=== PATIENT | male | born 1985 | race Caucasian/White ===

== ENCOUNTER 2016-07-24 05:09 | Emergency (ER) | payer SELFPAY ==
[~2016-07-24] VITALS: Ht 175.3 cm; Wt 63.5 kg
[2016-07-24 05:59] LABS: BASO % 0 % (0-3); EOS % 1 % (0-3); HEMATOCRIT 46.9 % (39.0-53.0); LYMPH # 1.7 x10^3/uL (1.0-4.8); LYMPH % 29 % (24-48); MEAN CORPUSCULAR HEMOGLOBIN 31 pg (25-35); MEAN CORPUSCULAR HGB CONC 34 g/dL (31-37); MEAN CORPUSCULAR VOLUME 92 fL (79-100); MONO % 8 % (0-9); NEUT % 62 % (31-73); PLATELET COUNT 245 x10^3/uL (140-400); RED BLOOD COUNT 5.13 x10^6/uL (4.30-5.70); RED CELL DISTRIBUTION WIDTH 13.1 % (11.5-14.5); WHITE BLOOD COUNT 5.8 x10^3/uL (4.0-11.0)
[2016-07-24] MEDS ORDERED: KETOROLAC 15 MG/ML VIAL. IV ONE (06:00)
[2016-07-24] MEDS ORDERED: IV NORMAL SALINE 1000ML BAG 1,000 ML IV SCH (06:00)
[2016-07-24] MEDS ORDERED: ONDANSETRON PF 4 MG/2 ML VIAL. IV ONE (06:00)
[2016-07-24] MEDS ORDERED: FAMOTIDINE 20 MG/2 ML VIAL IVP ONE (06:00)
[2016-07-24 06:05] LABS: CALCIUM 9.6 mg/dL (8.5-10.1); GFR 86.6; POTASSIUM 4.2 mmol/L (3.5-5.1)
[2016-07-24 06:11] LABS: ALBUMIN 4.3 g/dL (3.4-5.0); ALBUMIN/GLOBULIN RATIO 1.2 (1.0-1.7); TOTAL BILIRUBIN 0.3 mg/dL (0.2-1.0); TOTAL PROTEIN 7.8 g/dL (6.4-8.2)
--- NOTE | 2016-07-24 06:25 | PHYS DOC ---
Past Medical History Past Medical History: No Pertinent History Past Surgical History: No Surgical History Alcohol Use: None Drug Use: None Adult General Chief Complaint Chief Complaint: ABDOMINAL PAIN HPI HPI Patient is a 31 year old gentleman who presents here today complaining of abdominal pain for approximately 3 weeks. Patient reports pain got much worse today. Patient reports his last by mouth intake was last night at dinner where he ate a hamburger at [employer] as well as fries. Patient reports this evening the pain got really bad so he came to the ER. Pain is greatest in the right upper quadrant. Patient reports nausea with occasional vomiting. Patient denies diarrhea. Patient denies any fevers or shaking chills. Patient reports she's been taking Tums without any significant improvement. Patient denies any melena or bright red blood per rectum. Patient denies any dysuria or frequency or urgency. Patient denies any chest pain. Patient denies any diaphoresis. Patient denies any pain radiating to his left arm. Patient denies any pain to his back. Patient's physical exam was significant for significant tenderness to his right upper quadrant. Patient did not have a Atkins sign. Patient does not have any rebound or guarding on his abdominal exam. Patient has normal active bowel sounds. This is a 31-year-old gentleman who presents to the ER today with right upper quadrant abdominal pain that's been intermittent for approximately 3 weeks. 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 Patient reports yesterday he ate a hamburger and this evening the pain started getting worse. Patient reports she's been taking Tums with minimal relief. Patient's presentation is consistent for likely cholelithiasis. Patient's labs so far of all been unremarkable. An ultrasound of his gallbladder has been ordered and we' re awaiting the results of that. Patient's been given pain medicines in the ED including Zofran and Toradol to see if it assist with his pain. 629: Patient feels significantly improved after the pain medicines. Patient's ultrasound appears to be consistent with Colelithiasis. We are still awaiting the radiologist's report. Patient will be discharged home with Zofran and pain medicines and will be instructed to follow-up with his primary care physician and surgery for outpatient evaluation of his pain. Accepted care from Dr. Tierney at shift change. 0650: His symptoms have resolved; abdomen is soft and nontender. He is tolerating oral intake. Laboratory evaluation is unremarkable. Ultrasound has cholelithiasis and positive Atkins sign, however wall thickening does not meet criteria for cholecystitis and there is no pericholecystic fluid. He clarifies that his symptoms are usually worse when he lays down to go to bed, as opposed to postprandial. His symptoms and exam are more consistent with symptomatically cholelithiasis with associated gastritis. Discussed he should follow-up with primary care and start famotidine, as well as follow-up with general surgery. Return precautions given. He understands and agrees with plan. -Armando Mota MD Review of Systems Review of Systems Constitutional: Denies fever or chills [] Eyes: Denies change in visual acuity, redness, or eye pain [] All other review systems are negative except as documented in the history of present illness portion. Current Medications Current Medications Current Medications Medications (Trade) Dose Ordered Sig/Lynn Start Time Stop Time Status Last Admin Dose Admin Famotidine (Pepcid) 20 mg 1X ONCE 07/24/16 06:00 07/24/16 06:01 DC 07/24/16 05:35 20 MG Ketorolac Tromethamine 30 mg 30 mg 1X ONCE 07/24/16 06:00 07/24/16 06:01 DC 07/24/16 05:35 30 MG Ondansetron HCl (Zofran) 4 mg 1X ONCE 07/24/16 06:00 07/24/16 06:01 DC 07/24/16 05:35 4 MG Sodium Chloride (Iv Sodium Chloride 0.9% 1000ml Bag) 1,000 ml @ 1,000 mls/hr Q1H 07/24/16 06:00 07/24/16 06:59 DC 07/24/16 05:36 1,000 MLS/HR Allergies Allergies Allergies Coded Allergies Type Severity Reaction Last Updated Verified No Known Drug Allergies 07/24/16 No Physical Exam Physical Exam Constitutional: Well developed, well nourished, no acute distress, non-toxic appearance. [] HENT: Normocephalic, atraumatic, bilateral external ears normal, Eyes: EOMI, Neck: Normal range of motion, Cardiovascular:Heart rate regular rhythm, Lungs & Thorax: Bilateral breath sounds clear to auscultation [] Abdomen: Bowel sounds normal, soft, tenderness to palpation right upper quadrant , no masses, no pulsatile masses. [] Skin: Warm, dry, no erythema, no rash. [] Back: No tenderness, no CVA tenderness. [] Extremities: No tenderness, no cyanosis, no clubbing, ROM intact, no edema. [] Neurologic: Alert and oriented X 3, normal motor function, normal sensory function, no focal deficits noted. [] Psychologic: Affect normal, judgement normal, mood normal. [] Current Patient Data Vital Signs Vital Signs Date Time Temp Pulse Resp B/P Pulse Ox O2 Delivery O2 Flow Rate FiO2 07/24/16 06:46 72 18 114/78 98 Room Air 07/24/16 05:17 97.3 97.3 Lab Values Laboratory Tests Test 07/24/16 05:25 White Blood Count 5.8x10^3/uL (4.0-11.0) Red Blood Count 5.13x10^6/uL (4.30-5.70) Hemoglobin 16.0g/dL (13.0-17.5) Hematocrit 46.9% (39.0-53.0) Mean Corpuscular Volume 92fL (79-100) Mean Corpuscular Hemoglobin 31pg (25-35) Mean Corpuscular Hemoglobin Concent 34g/dL (31-37) Red Cell Distribution Width 13.1% (11.5-14.5) Platelet Count 245x10^3/uL (140-400) Neutrophils (%) (Auto) 62% (31-73) Lymphocytes (%) (Auto) 29% (24-48) Monocytes (%) (Auto) 8% (0-9) Eosinophils (%) (Auto) 1% (0-3) Basophils (%) (Auto) 0% (0-3) Neutrophils # (Auto) 3.6x10^3uL (1.8-7.7) Lymphocytes # (Auto) 1.7x10^3/uL (1.0-4.8) Monocytes # (Auto) 0.4x10^3/uL (0.0-1.1) Eosinophils # (Auto) 0.1x10^3/uL (0.0-0.7) Basophils # (Auto) 0.0x10^3/uL (0.0-0.2) Sodium Level 143mmol/L (136-145) Potassium Level 4.2mmol/L (3.5-5.1) Chloride Level 106mmol/L (98-107) Carbon Dioxide Level 31mmol/L (21-32) Anion Gap 6 (6-14) Blood Urea Nitrogen 14mg/dL (8-26) Creatinine 1.0mg/dL (0.7-1.3) Estimated GFR (Cockcroft-Gault) 86.6 BUN/Creatinine Ratio 14 (6-20) Glucose Level 108mg/dL (70-99) H Calcium Level 9.6mg/dL (8.5-10.1) Total Bilirubin 0.3mg/dL (0.2-1.0) Aspartate Amino Transferase (AST) 14U/L (15-37) L Alanine Aminotransferase (ALT) 23U/L (16-63) Alkaline Phosphatase 69U/L (46-116) Total Protein 7.8g/dL (6.4-8.2) Albumin 4.3g/dL (3.4-5.0) Albumin/Globulin Ratio 1.2 (1.0-1.7) Lipase 119U/L (73-393) Laboratory Tests 07/24/16 05:25 Laboratory Tests 07/24/16 05:25 EKG EKG [] Radiology/Procedures Radiology/Procedures [] Course & Med Decision Making Course & Med Decision Making Pertinent Labs and Imaging studies reviewed. (See chart for details) [] Dragon Disclaimer Dragon Disclaimer This electronic medical record was generated, in whole or in part, using a voice recognition dictation system. Departure Departure Impression: Primary Impression: Abdominal pain Disposition: HOME, SELF-CARE Condition: STABLE Referrals: BENSON DESAI MD Patient Instructions: Cholelithiasis, [id number], Diet for Gastroesophageal Reflux Disease, Adult, [id number] Additional Instructions: Take famotidine for likely GERD. Take Zofran as needed for nausea. Follow-up with primary care as well as general surgery (Dr. Desai) clinics. Please call for appointments. Scripts Famotidine 20 Mg [id number] Mg PO BID #30 TAB Prov:Nicko MOTA MD 07/24/16 Ondansetron Hcl (Zofran)4 Mg Tablet1 Tab PO PRN Q6-8HRS PRN NAUSEA #10 TAB Prov:Nicko MOTA MD 07/24/16 Problem Qualifiers Primary Impression: Abdominal pain Abdominal location: right upper quadrant Qualified Code: R10.11 - Right upper quadrant pain ADENIKE TIERNEY MD Jul 24, 2016 06:25 Nicko MOTA MD Jul 24, 2016 06:58
--- NOTE | 2016-07-24 06:34 | RAD ---
PROCEDURE Limited abdominal ultrasound dated 07/24/2016. HISTORY Right upper quadrant pain with nausea vomiting. TECHNIQUE Routine sonographic imaging performed. COMPARISON None. FINDINGS Liver is homogeneous in echogenicity. No focal hepatic mass. Biliary tree normal in caliber. The common bile duct measures 5 millimeter. There are echogenic shadowing foci within the gallbladder lumen with 1 calculus lodged near the gallbladder neck. The gallbladder is distended and there is sludge within the lumen. Positive sonographic Atkins's sign. Mild wall thickening measuring 4 millimeters. No pericholecystic fluid. Right kidney measures 10.1 centimeter in length without hydronephrosis. Left kidney was not imaged. Pancreas aorta and IVC are not well evaluated due to overlying bowel gas. No significant ascites. IMPRESSION Cholelithiasis with diffuse gallbladder wall thickening and positive Atkins's sign. Acute cholecystitis cannot be excluded. Electronically signed by: Oliver Méndez (Jul 24, 2016 06:32:19)
[2016-07-24 06:46] VITALS: BP 114/78
[2016-07-24] MEDS ORDERED: ONDA4TAB7 PO (06:57)
[2016-07-24] MEDS ORDERED: FAMO20TA5 PO (06:57)
--- NOTE | 2016-07-24 07:05 | ACF ---
Admit Criteria Forms Admit Criteria Forms Admit Criteria Forms ABDOMINAL PAIN Clinical Indications for Admission to Inpatient Care (Place 'X' for any and all applicable criteria): Admission is indicated for ANY ONE of the following(1)(2)(3)(4)(5): [X]I. Inpatient admission required rather than observation care (Also use Abdominal Pain: Observation Care, as appropriate) because of ANY ONE of the following: [ ]a) Severe pain requiring acute inpatient management [X]b) Identification of etiology/finding that requires inpatient care (eg, aortic dissection, free air) [ ]c) Absent bowel sounds with complete ileus(6) [ ]d) Suspected toxic megacolon [ ]e) Severe electrolyte abnormalities requiring inpatient care [ ]f) High fever or infection requiring inpatient admission as indicated by ANY ONE of following(7)(8): [ ] i) Appropriate outpatient or observational care antimicrobial treatment unavailable, not effective, or not feasible [ ] ii) Documented bacteremia [ ] iii) Temperature > 104.9 degrees F (oral) [ ] iv) T >103.1 F (oral) or < 96.8 F(rectal) that does not respond to all emergency treatment measures [ ]g) Signs of intestinal obstruction [B] [ ]h) Hemodynamic instability [ ]i) IV fluid to replace significant ongoing losses (greater than 3 L/m2 per day) (12)(13) [ ]j) Percutaneous or open drainage (eg, abscess, biliary tract ) procedures [ ]k) Parenteral nutrition regimen that must be implemented on inpatient basis [ ]l) Other condition,treatment or monitoring requiring inpatient admission. [ ]II. Peritoneal signs present [ ]III. Surgery needed that cannot be performed on an ambulatory basis. [ ]IV. Evaluation requires patient to not eat or drink for extended period ( eg, more than 24 hours). [ ]V. Contraindications and/or Inappropriate clinical situations for Observational Care in patients with abdominal pain, when ANY ONE of the following is required: [ ]a) Thorough evaluation is required to prevent catastrophic events due to delays in diagnosing (e.g.Mesenteric ischemia) 1,3 [ ]b) Patient with severe pathology or with chronic symptoms unlikely to improve in the ED stay (3) [ ]. General contraindications and/or Inappropriate clinical situations for Observational Care in patients with abdominal pain, when ANY ONE of the following is required: [ ]a) Prediction of prolongation of LOS based on ANY ONE of the following may be considered as a contraindication for observational care 2, 3, 4, 5, 6, 7, 8, 9, 10, 11 [ ]i) Age > 65 yrs. [ ]ii) Patient arriving by ambulance [ ]iii) Patient with high acuity [ ]iv) Patient requiring vital sign monitoring [ ]v) Patient on IV medication [ ]b) Systolic blood pressures 180mmHg 3,12 [ ]c) Patient with altered mental status including delirium and other alteration of consciousness, (3) [ ]d) Patient whose discharge disposition will be to a custodial home or rehabilitation home should not be managed in Emergency Department Observation Unit. CMS rule requires 3 days hospital stay before such placement.3,13 [ ]e) Patient with failure to thrive due to broad array of etiologies 3,16,17 [ ]f) Inability to ambulate 3,14 Extended stay beyond goal length of stay may be needed for(2)(3): [ ]a) Persistent abdominal pain with suspected intra-abdominal process [ ]b) Diagnosed condition requiring continued stay (e.g., pancreatitis, complicated diverticulitis) [ ]c) Surgery (e.g., colectomy) The original [employer] content created by [employer] has been revised. The portions of the content which have been revised are identified through the use of italic text or in bold, and [employer] has neither reviewed nor approved the modified material.All other unmodified content is copyright [employer]. Please see references footnoted in the original [facility] edition 2016 SONYA [place] Jul 24, 2016 07:04
== END 2016-07-24 07:00 | disposition home or self-care (01) ==
LOC: ER 05:09
DX: R10.11 Right upper quadrant pain (principal)
CPT/HCPCS: 36415; 76705; 80053; 83690; 85027; 96361; 96374; 96375; 99285; J1885; J2405; J7030; S0028